=== PATIENT | male | born 1985 | race Caucasian/White ===

== ENCOUNTER 2016-04-16 19:57 | Emergency (ER) | payer SELFPAY ==
[~2016-04-16 19:57] MED LIST: CIPR500T4 PO; CYCL-36 PO; LORTA5 PO; MOBI15TA PO; NORC5TAB PO; ROBA750T PO; Z.0.NO CURRENT MEDS
[2016-04-16 19:58] VITALS: BP 151/77; PULSE 108; RESP 16; TEMP 98.7; O2SAT 98
== END 2016-04-16 21:13 | disposition left against medical advice (07) ==
LOC: NED 19:57
DX: J02.9 Acute pharyngitis, unspecified (principal)
CPT/HCPCS: 99281